=== PATIENT | female | born 1950 | race Caucasian/White ===

== ENCOUNTER 2018-09-18 22:56 | Inpatient (IN) | payer SELFPAY ==
[2018-09-18] MEDS ORDERED: Ondansetron PF 4 MG/2 ML Vial ONE (23:42)
[2018-09-19] MEDS ORDERED: HYDROmorphone 0.5 MG/0.5 ML SYRINGE ONE (00:13)
--- NOTE | 2018-09-19 00:13 | PDOC.FPRHP ---
- History of Present Illness Chief Complaint: flank pain History of Present Illness: 68 yo F transferred for evaluation of 8mm obstructing nephrolithiasis. 12hr hx of R flank pain and has gotten progressively worse. Has nausea but no vomiting. Noted blood tinged urine a few days ago but no burning. No fevers, chills, or sweats. No history of stones in the past. ED Course: dilauded - Allergies/Adverse Reactions Allergies Allergy/AdvReac Type Severity Reaction Status Date / Time Sulfa (Sulfonamide Allergy Verified 09/19/18 01:27 Antibiotics) sulfur [From Sulfur-8] Allergy Verified 09/19/18 01:01 - Home Medications Medication Instructions Recorded Confirmed Type Gentamicin Sulfate 15 gm TP TID 09/19/18 09/19/18 History - History PMHx: Basal cell carcinoma on nose PSHx: throat mass resection (benign) FHx: none Social: 40py hx of smoking, quit 2 years ago. denies alcohol and drugs - Review of Systems General: denies: fever/chills, fatigue Eyes: denies: eye pain, vision changes ENT: denies: nasal congestion, rhinorrhea Respiratory: denies: cough, congestion Cardiovascular: denies: chest pain, palpitation Gastrointestinal: reports: nausea, vomiting Genitourinary: denies: incontinence, dysuria Skin: denies: rashes, lesions Musculoskeletal: reports: pain. denies: tenderness, stiffness Neurological: denies: syncope, seizure Psychological: denies: anxiety, depression - Vital signs BP: 138/91, Pulse: 87, Resp: 18, Temp: 97.6 (Oral), Pain: 2, O2 sat: 94 on Room Air, weight 74kg, Time: 09/18/2018 23:03. - Physical Exam Constitutional: awake, alert and oriented, well developed HEENT: EOMI, grossly normal vision, grossly normal hearing Neck: supple, FROM Chest: no-tender to palpation, no lesions Heart: RRR, normal S1/S2 Lungs: CTAB, no respiratory distress Abdomen: soft, non-tender -Musculoskeletal: moderate R flank pain to percussion Neurological: no focal deficit, normal sensation Skin: no rash/lesions, good turgor Heme/Lymphatic: no unusual bruising or bleeding, no purpura Psychiatric: normal mood and affect, good judgment and insight FMR H&P: Results - Labs Result Diagrams: 09/19/18 01:55 09/19/18 01:55 FMR H&P: A/P - Problem List (1) Nephrolith Current Visit: Yes Status: Acute (2) Basal cell carcinoma Current Visit: Yes Status: Acute Code(s): C44.91 - BASAL CELL CARCINOMA OF SKIN, UNSPECIFIED - Plan Nephrolithiasis A- Stone show on imaging, urology has been consulted and called from ED. Recommendations much appreciated. S/p rocephine x1 P- plan for uretostent placement in AM -NPO at midnight -no need to continue rocephin at this time -zofran and phenergan for nausea -fentanyl for pain controll -f/u recs from urology Basal cell carcinoma -continue home gent cream and f/u outpt FMR H&P: Upper Level - Pertinent history 68 yr old female with no PMH comes in for 1 day of right flank pank radiating to groin. Was found to have an obstructing stone and transferred to this ER. She has nausea and some vomiting. Some blood tinged urine. - Pertinent findings Abd/Pel CT: obstructive uropathy 2/2 8 mm stone at the right uteropelvic junction, hyperdense posterior uterine lesion Gen: Pt is sitting up in bed feeling nauseated with vomit bag in hand, she is pleasant in between acute feelings of nausea Heart: RRR, no M/R/G Lungs:CTAB, no W/R/R MSK: mild tenderness to right flank Abd: mild tender to right low quadrant and groin Neuro: no focal deficits - Plan Date/Time: 09/19/18 0011 I, [Rosy Mckenzie], have evaluated this patient and agree with findings/plan as outlined by internet sales manager resident. Pertinent changes/additions are listed here. 68 yr old female with no significant PMH presenting with obstructing nephrolithiasis right obstructing uteropelvic nephrolithiasis -consult placed to Dr. Emmanuel who plans to place stent in AM -overnight pain control- morphine did not seem to be adequate, dilaudid given in ER, will give PRN fentanyl -fluids via IV -zofran PRN -s/p 1 dose rocephin hyperglycemia - check fasting BG Posterior uterine hyperdense lesion -outpatient pelvic ultrasound recommended PCP: [facility] Code: FULL
[2018-09-19] MEDS ORDERED: Acetaminophen 325 MG TAB PO PRN (01:18)
[2018-09-19] MEDS ORDERED: Ondansetron PF 4 MG/2 ML Vial IVP PRN ×2 (01:18→01:24)
[2018-09-19] MEDS ORDERED: Ondansetron ODT 4 MG TAB SL PRN (01:18)
[2018-09-19] MEDS ORDERED: Morphine 4 MG/ML VIAL SLOW IVP PRN (01:19)
[2018-09-19] MEDS ORDERED: Promethazine HCl 25 MG/ML VIAL IM PRN ×2 (01:24→10:29)
[2018-09-19 01:27] VITALS: BMI 31.9
[2018-09-19] MEDS: Lactated Ringer's 1,000 ML IV SCH ×2 (01:47→17:26)
[2018-09-19] MEDS: Sodium Chloride 0.9% 1,000 ML IV SCH ×2 (01:50→11:41)
[2018-09-19 02:11] LABS: #Lymphocytes 1.3 thou/uL (1.20-3.40); #Monocytes 0.7 thou/uL (0.11-0.59); #Neutrophils 7.8 thou/uL (1.40-6.50); %Basophils 0.3 % (0.0-1.0); %Eosinophils 0.1 % (0.0-10.0); %Lymphocytes 13.5 % (21.0-51.0); %Monocytes 6.8 % (0.0-10.0); %Neutrophils 79.3 % (42.0-75.0); Hemoglobin 12.4 g/dL (12.0-16.0); Mean Corpuscular HGB CONC 33.4 g/dL (32.0-36.0); Mean Corpuscular Hemoglobin 30.2 pg (27.0-31.0); Mean Corpuscular Volume 90.4 fL (78.0-98.0); Mean Platelet Volume 7.3 fL (7.4-10.4); Platelet Count 313 thou/uL (130-400); RBC Distribution Width 11.4 % (11.5-14.5); White Blood Cell (WBC) Count 9.9 thou/uL (4.8-10.8)
[2018-09-19 02:20] LABS: Anion Gap 14 mmol/L (10-20); BUN (Urea Nitrogen) 13 mg/dL (9.8-20.1); Calc. Creatinine Clearance 80 mL/min (70-130); Calcium 8.9 mg/dL (7.8-10.44); Carbon Dioxide 23 mmol/L (23-31); Chloride 109 mmol/L (98-107); Estimated GFR-MDRD 68; Glucose 146 mg/dL (80-115); Potassium 3.8 mmol/L (3.5-5.1); Sodium 142 mmol/L (136-145)
[2018-09-19] MEDS ORDERED: Ketorolac Tromethamine 30 MG/ML VIAL IVP PRN (06:38)
[2018-09-19 07:35] LABS: Glucose Accucheck Confirmation 102 mg/dl (80-115)
[2018-09-19] MEDS ORDERED: Fentanyl 100 MCG/2 ML VIAL ONE ×2 (09:06→12:49)
[2018-09-19] MEDS ORDERED: Iothalamate Meglumine 60% 50 ML VIAL FS ONE (09:10)
[2018-09-19] MEDS ORDERED: Sodium Chloride 0.9% 100 ML ONE (09:14)
[2018-09-19] MEDS ORDERED: cefTRIAXone\\ROCEPHIN 1 GM VIAL ONE (09:14)
[2018-09-19] MEDS ORDERED: Ondansetron HCl/PF 4 MG/2 ML Vial IVP PRN (10:29)
[2018-09-19] MEDS ORDERED: Morphine Sulfate 2 MG/ML SYRINGE SLOW IVP PRN (10:29)
[2018-09-19] MEDS ORDERED: Promethazine HCl 25 MG/ML VIAL SLOW IVP PRN (10:29)
--- NOTE | 2018-09-19 10:38 | RAD ---
RETROGRADE PYELOGRAM 4 VIEWS: Four fluoroscopic views were presented from the OR during retrograde procedure. INDICATION: Renal stones. Intraoperative imaging during retrograde procedure. FINDINGS: Initial view shows density overlying the right renal pelvis which may represent calculus. However, t his region is obscured by overlying bowel content. Subsequent images show catheter into the right re nal pelvis. Partial opacification of the right collecting structures. Final image shows catheter an d wire in the ureter and right renal pelvis. POS: [facility]
[2018-09-19 11:19] LABS: PTT 27.3 SEC (22.9-36.1); Prothrombin Time 13.6 SEC (12.0-14.7)
[2018-09-19] MEDS: Gentamicin TOPICAL Ointment 0.1% 15 gm Tube TOP SCH ×3 (11:40→20:16)
[2018-09-19] MEDS ORDERED: Midazolam HCl 2 mg/2 ml Vial ONE (12:49)
[2018-09-19] MEDS ORDERED: Dexamethasone 20 MG/5 ML VIAL ONE (13:53)
[2018-09-19] MEDS ORDERED: Ondansetron PF 4 MG/2 ML Vial ONE (13:53)
[2018-09-19] MEDS ORDERED: ePHEDrine 50 MG/ML VIAL ONE (13:53)
[2018-09-19] MEDS ORDERED: Lidocaine 1% PF 5 ML VIAL ONE (13:53)
[2018-09-19] MEDS ORDERED: PHENYLEPHRINE-NS 100 MCG/ML 10 ML SYRINGE ONE (13:53)
[2018-09-19] MEDS ORDERED: PROPOFOL 200 MG/20 ML VIAL ONE (13:53)
--- NOTE | 2018-09-19 15:10 | HP ---
HISTORY OF PRESENT ILLNESS: I have examined the patient. I have discussed the case with Dr. Jorge A Rodriguez, and agree with his assessment and plan. Ms. Rios is a 68-year-old white female, who presented by transfer from an outlying institution with a distal 8 mm obstructing kidney stone on the right side. She had presented to their institution with a 12-hour history of right flank pain that become progressively worse and was associated with nausea, but no fever or chills. PHYSICAL EXAMINATION: GENERAL: She is now currently awake and alert and feeling better. She is in 3 to 4/10 degree of pain. VITAL SIGNS: Her blood pressure is 140/85, her pulse rate is 80, and respirations 18. She is afebrile. Her room air O2 saturation is 94%. As stated in general, she is awake and alert, in no acute distress. EAR, NOSE, AND THROAT: No erythema or exudate. Good mucous membrane moisture. NECK: Supple. CARDIAC: Heart rhythm is regular without gallop or murmur. LUNGS: Clear. No rales or wheezes. ABDOMEN: Flat and soft without guarding, rebound, or rigidity. EXTREMITIES: No edema. NEUROLOGICAL: No focal deficits. LABORATORY DATA: CBC; white count is 9900 with a hemoglobin of 12.4, hematocrit 37.1, and MCV of 90. Her chemistry; sodium is 142, potassium 3.8, chloride 109, bicarb 23, BUN 13, and creatinine 0.84. Her outlying urogram did show a distal 8 mm obstructing kidney stone on the right side. ASSESSMENT: Nephrolithiasis with urinary obstruction. PLAN: Admit. Pain control. Fluids. Consult Urology. Job ID: [id number]
--- NOTE | 2018-09-19 16:11 | SPC ---
EXAM: Limited ultrasound right kidney PROVIDED CLINICAL HISTORY: Patient with obstructing right UPJ calculus. Attempted right ureteral stent placement was unsuccessfu l. Placement of a nephrostomy tube was requested. COMPARISON: Fluoroscopic images from retrograde urogram obtained prior to this study. FINDINGS: Limited ultrasound of the right kidney was performed to evaluate for access site. An echogenic focus is seen within the junction of the midportion and superior pole right kidney which demonstrates posterior shadowing compatible with a calculus. Fluoroscopic image was also obtained which demonstrat es the previously seen calculus adjacent to the L2-3 level on the pre school teacher image from the retrograde study to now overlie the left upper quadrant compatible with migration of the calculus into the right renal collecting system and secondary to recent manipulation during right retrograde urogram study. Ultrasound does not demonstrate evidence of hydronephrosis. Mild prominence of the renal pelvi s is present, and no calyceal dilatation is appreciated. Above findings were discussed with Dr. Emmanuel at this time. Given that there has been interval migration of the calculus into the renal andi ecting system and no obvious hydronephrosis, nephrostomy tube was not placed at this time. IMPRESSION: Interval migration of the previously noted right UPJ calculus into the right renal collecting system. Sonographic images demonstrate no significant hydronephrosis on this study.
--- NOTE | 2018-09-19 18:12 | PRG ---
DATE OF SERVICE: 09/19/2018 After I was unable to place a stent beyond the stone, Dr. Dexter consented the patient for a percutaneous nephrostomy tube. However, with ultrasound images, he noted that the stone was actually in the renal pelvis and there was no significant hydronephrosis present. He felt it was not appropriate to place the PCN tube as the patient was actually clinically feeling better and vitals were stable. He reviewed this with me and ultimately neither of us could explain how I could not get the wire or contrast into the renal pelvis. However, the cystoscopic manipulation did get the stone into the renal pelvis and helped with drainage of the unit. Currently, she reports voiding much more easily with pain similar to that from almost a year ago--but definitely not nearly as severe as when she presented. The urine is already clearing some per her report. At this point, I debated further procedural options. Certainly I am not comfortable sending the patient out without access to the renal pelvis as I am concerned that the stone would just obstruct again. However, I did not want to take her immediately back as there is more than likely still edema and hematuria that would still make it difficult to gain access retrograde. As long as she remains clinically stable, we reviewed how I would give her approximately 24 hours of bed rest and monitoring with IV antibiotics and plan to attempt to stent her again tomorrow. Risks and benefits of this were reviewed in great detail. All questions answered. I will plan for cystoscopy with attempted right stent attempt again tomorrow. For now, she can eat and drink tonight but should be n.p.o. after midnight or at least certainly by 5:00 a.m. in the morning since it will be a late afternoon case. Job ID: [id number] MTDD
--- NOTE | 2018-09-19 19:11 | OP ---
DATE OF PROCEDURE: 09/19/2018 PREOPERATIVE DIAGNOSIS: Right ureteropelvic junction stone with urinary tract infection. POSTOPERATIVE DIAGNOSIS: Impacted right ureteropelvic junction stone. ANESTHESIA: General with laryngeal mask airway. FINDINGS: Impacted stone that I was not able to get either contrast or wire proximal to the stone, so an unsuccessful stent placement. PROCEDURES PERFORMED: Cystoscopy, retrograde pyelogram, ureteroscopy, stent attempted, but unable to be placed. SPECIMENS: None. DRAIN REMAINING: None. ESTIMATED BLOOD LOSS: None. INDICATIONS FOR PROCEDURE: The patient is a 68-year-old female, who had significant right renal colic and was found to have an obstructing right UPJ stone with urinary tract infection, so was admitted for urgent stent. We did review the risks and benefits prior to. DESCRIPTION OF PROCEDURE: The patient was taken to the OR, given general anesthesia and placed in lithotomy position, where her perineum was prepped and draped in a sterile fashion using a 21-Lao cystoscope with 30-degree lens, the urethra was traversed and the bladder was inspected. There were no lesions noted. The right ureteral orifice was intubated with a wire and then Gipsy catheter. I did not want to do a retrograde pyelogram at this point, because I was trying to decrease any significant pressure on the system given the infection, so the Gipsy catheter was advanced up to the proximal ureter and then I attempted to place the wire beyond the stone. I was unable to do so and it did appear that the proximal ureter was kinked in a U and S shape. The wire was coiling back on itself instead of moving beyond the stone. At some point, I did notice that the stone had moved as there was some cloudy effuse returned at the UO, but it was not consistent and only temporary. Despite multiple attempts with different wires, I was unable to advance any wire beyond the stone. At this point, I got the rigid ureteroscope with very minimal to no water pressure. I advanced along the wire up to the proximal ureter and I was hoping that with this rigidity, I would have more of a fulcrum and able to gain access. I was not even after much manipulation, still trying to minimize any significant pressure. I was unable to get anything beyond the stone whether it be contrast or a wire. At one point, it did look like a wire might have perforated the ureter since it went more medially. I did not advance the pollack catheter along this course but simply removed the wire. At this point, I felt it was appropriate to stop and everything was removed. The bladder was drained and the patient was awakened. I spoke with IR about placing an urgent percutaneous nephrostomy tube. They would plan for this accordingly. Job ID: [id number] MTDD
[2018-09-19] MEDS: GENTAMICIN 0.1% TOP SCH (20:37)
[2018-09-19] MEDS ORDERED: traMADol HCl 50 MG TAB PO PRN ×2 (22:13)
[2018-09-19] MEDS: 1/2 NS w/KCL 20 mEq 1,000 ML IV SCH (22:26)
[2018-09-20 04:09] LABS: #Lymphocytes 2.7 thou/uL (1.20-3.40); #Monocytes 0.7 thou/uL (0.11-0.59); #Neutrophils 5.8 thou/uL (1.40-6.50); %Basophils 0.4 % (0.0-1.0); %Eosinophils 0.3 % (0.0-10.0); %Lymphocytes 28.9 % (21.0-51.0); %Neutrophils 62.3 % (42.0-75.0); Hemoglobin 10.9 g/dL (12.0-16.0); Mean Corpuscular HGB CONC 32.4 g/dL (32.0-36.0); Mean Corpuscular Hemoglobin 29.4 pg (27.0-31.0); Mean Corpuscular Volume 90.9 fL (78.0-98.0); Mean Platelet Volume 7.2 fL (7.4-10.4); Platelet Count 316 thou/uL (130-400); RBC Distribution Width 11.5 % (11.5-14.5); Red Blood Cell (RBC) Count 3.72 mill/uL (4.20-5.40); White Blood Cell (WBC) Count 9.3 thou/uL (4.8-10.8)
[2018-09-20 04:25] LABS: Anion Gap 11 mmol/L (10-20); BUN (Urea Nitrogen) 7 mg/dL (9.8-20.1); Calc. Creatinine Clearance 96 mL/min (70-130); Calcium 8.6 mg/dL (7.8-10.44); Carbon Dioxide 24 mmol/L (23-31); Chloride 111 mmol/L (98-107); Estimated GFR-MDRD 84; Glucose 96 mg/dL (80-115); Potassium 3.8 mmol/L (3.5-5.1); Sodium 142 mmol/L (136-145)
[2018-09-20] MEDS: Fentanyl 100 MCG/2 ML VIAL SLOW IVP PRN ×3 (04:48→12:05)
[2018-09-20] MEDS ORDERED: Morphine 4 MG/ML VIAL SLOW IVP SCH (05:30)
--- NOTE | 2018-09-20 05:59 | PDOC.FM ---
- Subjective Subjective: Had severe pain this AM relieved with Morphine and position changes. Currently pain is tolerable if she limits how much she moves. Improvement with urinating. Denies fever, chills. - Objective MAR Reviewed: Yes Vital Signs & Weight: Vital Signs (12 hours) Temp Pulse Resp BP Pulse Ox 09/20/18 04:00 97.9 F 87 16 122/63 94 L 09/19/18 23:48 97.9 F 96 16 116/65 94 L 09/19/18 20:00 96 09/19/18 19:33 97.9 F 106 H 16 105/70 96 Weight Weight 76.771 kg I&O: 09/18/18 09/19/18 09/20/18 06:59 06:59 06:59 Intake Total 1440 Balance 1440 Result Diagrams: 09/20/18 03:59 09/20/18 03:59 Phys Exam - Physical Examination Constitutional: NAD HEENT: moist MMs Neck: supple Respiratory: no wheezing, clear to auscultation bilateral Cardiovascular: RRR, no significant murmur Gastrointestinal: soft, positive bowel sounds Diffuse abdominal pain with palpation. No rebound or rigidity Musculoskeletal: pulses present Neurological: moves all 4 limbs Psychiatric: normal affect, A&O x 3 Skin: normal turgor Dx/Plan (1) Nephrolith Status: Acute (2) Basal cell carcinoma Code(s): C44.91 - BASAL CELL CARCINOMA OF SKIN, UNSPECIFIED Status: Chronic - Plan Plan: 68 yr old female with no significant PMH presenting with obstructing nephrolithiasis Right obstructing uteropelvic nephrolithiasis - Urology consulted, R ureter stent unsuccessful on 09/19. - IR was consulted for percutaneous nephrostomy tube placement. Not placed due to interval migration of calculus into renal collecting system - Currently NPO for stent placement later this afternoon - Fentanyl & Morphine for pain - Zofran & Phenergan PRN - Continue Rocephin - LR @ 120 Posterior uterine hyperdense lesion - Outpatient pelvic ultrasound recommended Code Status: FULL DVT ppx: SCDs
[2018-09-20] MEDS: 1/2 NS w/KCL 20 mEq 1,000 ML IV SCH (09:59)
[2018-09-20] MEDS: cefTRIAXone\\ROCEPHIN 2 GM in Sodium Chloride 0.9% 100 ML IVPB SCH (10:02)
[2018-09-20] MEDS: GENTAMICIN 0.1% TOP SCH ×3 (10:06→19:45)
--- NOTE | 2018-09-20 12:23 | PRG ---
DATE OF SERVICE: 09/20/2018 ADDENDUM: Please add this is an addendum to the note of Dr. Araseli Moralez. An unsuccessful attempt was made to retrieve the stone yesterday. The patient has been scheduled for another procedure about 4 o'clock this afternoon. She is in a great deal of pain and we are adjusting her pain medications accordingly. She is also on antibiotics for UTI prophylaxis. We will continue to follow the progress of the patient with Urology. Job ID: [id number]
[2018-09-20] MEDS ORDERED: Iothalamate Meglumine 60% 50 ML VIAL FS ONE (15:11)
[2018-09-20] MEDS ORDERED: Ondansetron PF 4 MG/2 ML Vial ONE (15:39)
[2018-09-20] MEDS ORDERED: Rocuronium Bromide 10 MG/ML (10ML VIAL) ONE (15:39)
[2018-09-20] MEDS ORDERED: PHENYLEPHRINE-NS 100 MCG/ML 10 ML SYRINGE ONE (15:39)
[2018-09-20] MEDS ORDERED: Lidocaine 1% PF 5 ML VIAL ONE (15:39)
[2018-09-20] MEDS ORDERED: Succinylcholine Chloride 20 MG/ML 10 ml SYRINGE FS ONE (15:39)
[2018-09-20] MEDS ORDERED: PROPOFOL 200 MG/20 ML VIAL ONE (15:39)
[2018-09-20] MEDS ORDERED: Dexamethasone 20 MG/5 ML VIAL ONE (15:39)
[2018-09-20] MEDS ORDERED: Fentanyl 100 MCG/2 ML VIAL ONE (15:51)
[2018-09-20] MEDS ORDERED: SUGAMMADEX SODIUM 500 MG/5 ML VIAL ONE (16:43)
--- NOTE | 2018-09-20 16:54 | RAD ---
EXAM: XR IVP Retrograde PROVIDED CLINICAL HISTORY: Right ureteral stent placement. Right renal calculus. COMPARISON: Study on 09/19/2018. FINDINGS/IMPRESSION: 2 intraoperative fluoroscopic images from right retrograde urogram are provided. Initial image demons trates a guidewire in place with opacification of a portion of the right renal collecting system and proximal right ureter. There is mild calyceal dilatation. The entire collecting system was not op acified. Subsequent image demonstrates a right ureteral stent in place. Correlation with intraoperative findings is recommended.
[2018-09-20] MEDS ORDERED: Promethazine HCl 25 MG/ML VIAL IM PRN (17:03)
[2018-09-20] MEDS ORDERED: Morphine Sulfate 2 MG/ML SYRINGE SLOW IVP PRN (17:03)
[2018-09-20] MEDS ORDERED: Meperidine HCl/PF 25 MG/ML VIAL SLOW IVP PRN (17:03)
[2018-09-20] MEDS ORDERED: Promethazine HCl 25 MG/ML VIAL SLOW IVP PRN (17:03)
[2018-09-20] MEDS ORDERED: Ondansetron HCl/PF 4 MG/2 ML Vial IVP PRN (17:03)
[2018-09-20] MEDS ORDERED: HYDROmorphone 2 MG/ML VIAL SLOW IVP PRN (17:03)
[2018-09-21] MEDS: 1/2 NS w/KCL 20 mEq 1,000 ML IV SCH ×2 (00:59→10:51)
--- NOTE | 2018-09-21 03:28 | OP ---
DATE OF PROCEDURE: 09/20/2018 PREOPERATIVE DIAGNOSIS: Right renal prior UPJ stone. POSTOPERATIVE DIAGNOSIS: Right renal prior UPJ stone. PROCEDURES PERFORMED: Cystoscopy, right retrograde right pyelogram, and insertion of right ureteral stent 6 x 24. ANESTHESIA: General with endotracheal tube. FINDINGS: Stone in the upper calyx in a small and short pelvis with adequate placement of a stent with coil in the upper pole near the stone. SPECIMENS: None. COMPLICATIONS: None. DRAIN REMAINING: Internal double-J stent 24 x 6. INDICATIONS FOR PROCEDURE: The patient is a 68-year-old female who I attempted to place a stent the day prior given concerns for infection and obstructing UPJ stone. I did not originally do a retrograde pyelogram because I did not want to increase pressure and have bacterial translocation, but ultimately got the stone to move. But I did not recognize that it was in the renal pelvis or even in the upper pole at that time. When I did the gentle retrograde pyelogram, no further contrast got beyond the stone and it did not fill up anything that looked like a pelvis, so it was more consistent with a torturous ureter with the stone still impacted. The wire did not coil as if in the pelvis but kept turning back more consistent with being in a confined space like that of the proximal ureter. I asked for percutaneous nephrostomy tube by IR after the procedure. By the time she went for that, her hydronephrosis was down and the stone appeared to be in the renal pelvis, so it deferred. So, I took her back the next day (today) since she was hemodynamically stable and feeling better with the hope that any UPJ inflammation would be resolved and I would be able to place the stent with better guidance from a more complete retrograde pyelogram.. DESCRIPTION OF PROCEDURE: The patient was brought into the room by Anesthesia, laid on the table in supine position. After receiving general anesthetic, the legs were placed in a lithotomy position and perineum was prepped and draped in sterile fashion. Using a 21-Kenyan cystoscope and 30-degree lens, the urethra was traversed and the bladder inspected. Retrograde pyelogram was performed revealing no hydronephrosis and the stone in the upper pole calyx with minimal pelvic both length and width. Measurements were taken for a 24 x 6 double-J, which was placed with good coil actually in the upper pole renal pelvis by the stone and a good coil visualized in the bladder. What was now clear from the retrograde pyelogram was that I had moved the stone originally from the UPJ to the upper pole, but had not noted it moved that far (which was actually not that far given her small renal pelvis) and was concerned that it was still at the proximal ureter. The retrograde pyelogram did not show any renal pelvis, only urine accumulating contrast just below the stone and not above given that the stone was already in the upper calyx. That explained the findings from the day prior. The scope was broke apart, bladder drained, and the patient was awakened and transferred to PACU in stable condition.Since I was able to adequately place the stent at this time, she hopefully will do well and is safe to be discharged with the stent. Job ID: [id number] JENI
--- NOTE | 2018-09-21 06:15 | PDOC.FM ---
- Subjective Subjective: Feeling better this morning. Continues to have pain but mostly with urination. Has not had a bowel movement since Tuesday. Tolerated crackers and water last night. Ordered eggs and peaches for breakfast. - Objective MAR Reviewed: Yes Vital Signs & Weight: Vital Signs (12 hours) Temp Pulse Resp BP Pulse Ox 09/21/18 04:00 98.6 F 97 18 120/63 92 L 09/21/18 00:00 99.3 F 90 18 122/68 96 09/20/18 19:38 98.3 F 92 18 126/77 94 L 09/20/18 19:00 98.2 F 83 18 142/75 H 94 L Weight Weight 76.771 kg I&O: 09/19/18 09/20/18 09/21/18 06:59 06:59 06:59 Intake Total 1440 2562 Balance 1440 2562 Result Diagrams: 09/20/18 03:59 09/20/18 03:59 Phys Exam - Physical Examination Constitutional: NAD HEENT: moist MMs Neck: supple Respiratory: no wheezing, clear to auscultation bilateral Cardiovascular: RRR, no significant murmur Gastrointestinal: soft Musculoskeletal: no edema Neurological: moves all 4 limbs Psychiatric: normal affect, A&O x 3 Skin: no rash Dx/Plan (1) Nephrolith Status: Acute (2) Basal cell carcinoma Code(s): C44.91 - BASAL CELL CARCINOMA OF SKIN, UNSPECIFIED Status: Chronic - Plan Plan: 68 yr old female with no significant PMH presenting with obstructing nephrolithiasis Right obstructing uteropelvic nephrolithiasis - Urology consulted, R ureter stent unsuccessful on 09/19. - IR was consulted for percutaneous nephrostomy tube placement. Not placed due to interval migration of calculus into renal collecting system - Successful stent placement 09/20 - Fentanyl & Tramadol for pain - Zofran & Phenergan PRN - Continue Rocephin - 1/2NS + K @100 - Pt ordered full breakfast Posterior uterine hyperdense lesion - Outpatient pelvic ultrasound recommended Code Status: FULL DVT ppx: SCDs Dispo: Likely today
[2018-09-21] MEDS: cefTRIAXone\\ROCEPHIN 2 GM in Sodium Chloride 0.9% 100 ML IVPB SCH (08:32)
[2018-09-21] MEDS: GENTAMICIN 0.1% TOP SCH (08:34)
[2018-09-21] MEDS ORDERED: Docusate 100 MG CAP PO SCH (09:00)
[2018-09-21 09:37] VITALS: BP 123/58; TEMP 98.3
--- NOTE | 2018-09-21 12:53 | PRG ---
DATE OF SERVICE: 09/21/2018 SUBJECTIVE: The patient did well overnight. She does have discomfort when she voids, but otherwise has no significant pain that is not consistent with stent pain. She has been hungry and tolerated her breakfast this morning and she is voiding adequately. LABORATORY DATA: Her vitals have been stable and she has had good urine output. No new labs to review. ASSESSMENT: We have a 68-year-old female admitted with infection and obstructing stone, status post attempted stent that actually dislodged stone, but without a stent placement she returned the next day for successful stent placement. We now can have her stone treated as an outpatient after completion of antibiotics. I have written for tamsulosin and antibiotics to complete for another week and she should follow up with the urologist in her hometown for definitive therapy. I have asked her to have the CT scan printed out and taken with her when she leaves the hospital. The other records could all be faxed. She is aware that the ureteral stent is temporary and cannot remain. The stone should be treated before it is removed. All questions were answered. Job ID: [id number] [facility]
--- NOTE | 2018-09-21 13:55 | PRG ---
DATE OF SERVICE: 09/21/2018 Ms. Rios has successful intervention yesterday with Urology and is now ready to be discharged. She is in much less pain and will be seen in followup by Dr. Emmanuel at a later date. Job ID: [id number]
--- NOTE | 2018-09-23 06:14 | DIS ---
DATE OF ADMISSION: 09/19/2018 DATE OF DISCHARGE: 09/21/2018 RESIDENT: Araseli Moralez MD, PGY-1. ADMITTING ATTENDING: Ammon Stapleton MD. CONSULTS: 1. Urology. 2. Neurosurgery. PROCEDURES: 1. Abdomen and pelvis CTA, obstructive uropathy on the right secondary to a prominent stone at the right ureteropelvic junction measuring approximately 8 mm. 2. Ultrasound right kidney, this was on 09/19/2018, interval migration of previously noted right UPJ calculus into the right renal collecting system. Retrograde pyelogram demonstrates no significant hydronephrosis on 09/19/2018. Initial views showed density overlying the right renal pelvis which may represent a calculus. However, this region is obscured by overlying bowel contents. Subsequent images show catheter in the right renal pelvis. Partial opacification of the right collecting structures. Final image shows catheter and wire in the ureter and right renal pelvis. 3. Cystoscopy, retrograde pyelogram, ureteroscopy, stent attempted, but unable to be placed on 09/19/2018. Please see operative note for further details. 4. IVP, retrograde x-ray on 09/20/2018. Two intraoperative fluoroscopic images from the right retrograde urogram are provided. Initial images demonstrates a guidewire in place with opacification of a portion of the right renal collecting system and proximal right ureter. There is mild calyceal dilation. The entire collecting system was not opacified. Subsequent images demonstrate right ureteral stent in place correlation with intraoperative findings commended. 5. Cystoscopy, right retrograde, right pyelogram, and insertion of a right ureteral stent 6 x 24 on 09/20/2018, successful placement of stent. PRIMARY DIAGNOSES: Right obstructing ureteropelvic nephrolithiasis. SECONDARY DIAGNOSIS: Posterior uterine hyperdense lesion. DISCHARGE MEDICATIONS: 1. Urispas 100 mg t.i.d. 2. Gentamicin topically. HISTORY OF PRESENT ILLNESS/HOSPITAL COURSE: Ms. Rios is a 68-year-old female who was transferred from [place] for 8 mm obstructing nephrolithiasis, 12 hours of right flank pain. [place]. She noticed blood-tinged urine a few days ago, but no other symptoms. Had no fevers or chills. No history of stones in the past. Pain was controlled with Dilaudid in the ED. Only medical history is basal cell carcinoma on the nose, benign throat mass resection. She has 40-pack years smoking history and has quit 2 years ago. Vital signs at admission, blood pressure 138/91, pulse 87, respirations 18, afebrile. Exam was notable for moderate right CVA tenderness. She was made n.p.o. at midnight. Rocephin was continued during the hospital course. She received Zofran and Phenergan for nausea and fentanyl for pain control IV fluids. On CT, she was diagnosed with a right obstructing ureteropelvic nephrolithiasis, Urology was consulted, who attempted a stent placement on 09/19/2018, stent placement was unsuccessful. Please see details in operative note on 09/19. IR was consulted for percutaneous nephrostomy tube placement. Tube was not placed due to interval migration of calculus in the renal collecting system. On 09/20, there was successful stent placement. The patient was receiving tramadol and fentanyl for pain control and also on Urispas. The patient was pain controlled on Urispas and was able to tolerate p.o. prior to discharge. Of note, there was an incidental posterior uterine hyperdense lesion found on CT. Outpatient pelvic ultrasound is recommended. DISPOSITION: Stable. DISCHARGE INSTRUCTIONS: 1. Location: Home. 2. Diet: Regular. 3. Activity: No restrictions. 4. Follow up with PCP in [place] as well as a urologist once she returns home. Job ID: [id number]
== END 2018-09-21 13:00 | disposition home or self-care (01) | DRG 660 ==
LOC: ERS 22:56 → ONC 09-19 01:15
PROVIDERS: ADMIT Family Medicine; ATTEND Family Medicine
PROC: 0TJB8ZZ Inspection of Bladder, Via Natural or Artificial Opening Endoscopic (ICD-10-PCS; 2018-09-19)
PROC: BT1DYZZ Fluoroscopy of Right Kidney, Ureter and Bladder using Other Contrast (ICD-10-PCS; 2018-09-19)
PROC: 0T768DZ Dilation of Right Ureter with Intraluminal Device, Via Natural or Artificial Opening Endoscopic (ICD-10-PCS; principal; 2018-09-20)
PROC: BT1DYZZ Fluoroscopy of Right Kidney, Ureter and Bladder using Other Contrast (ICD-10-PCS; 2018-09-20)
DX: N20.2 Calculus of kidney with calculus of ureter (principal); N39.0 Urinary tract infection, site not specified; C44.91 Basal cell carcinoma of skin, unspecified
CPT/HCPCS: 36415; 50432; 74420; 80048; 85025; 85610; 85730; 96361; 96374; 96375; C1758; C1769; J0696; J1100; J1170; J1885; J2001; J2250; J2270; J2405; J2704; J3010; J3480; J3490; Q9961